=== PATIENT | male | born 1995 | race Caucasian/White ===

== ENCOUNTER 2017-02-01 10:05 | Emergency (ER) | payer OTHER ==
[~2017-02-01] VITALS: Ht 182.9 cm; Wt 75.0 kg
[2017-02-01 10:06] VITALS: BP 137/72
== END 2017-02-01 10:48 | disposition home or self-care (01) ==
LOC: M ED 10:05
DX: Z01.30 Encounter for examination of blood pressure without abnormal findings (principal)

== ENCOUNTER → 2017-02-09 | Outpatient (CLI) | payer OTHER ==
[~2017-02-09] MED LIST: ISOVUE-370 76% 100ML VIAL (Q9967) As Ordered ONE
--- NOTE | 2017-02-10 08:23 | REP ---
CT of the chest with IV contrast: There are no comparisons. There are no infiltrates or effusions. There are no masses or nodules. There is no mediastinal or hilar lymph node enlargement. There is no axillary lymph node enlargement. The thoracic aorta is unremarkable. Cardiac size is normal. There is no pericardial effusion. The visualized upper abdominal contents are unremarkable. Impression: Negative CT study of the chest. There is no lymph node enlargement. Signed by Ernesto Norht MD 02/10/2017 08:14 A
== END ==
LOC: M RAD 17:33
PROVIDERS: ATTEND Physician Assistant
DX: R07.9 Chest pain, unspecified (principal)

== ENCOUNTER → 2019-09-03 | Outpatient (CLI) | payer OTHER | LOC: M OUTALCOH 08:54 | PROVIDERS: ATTEND Psychiatry & Neurology Addiction Medicine | DX: Z03.89 Encounter for observation for other suspected diseases and conditions ruled out (principal) ==

== ENCOUNTER 2019-09-19 14:33 | Outpatient (RCR) | payer OTHER | END 2019-10-07 | LOC: M OUTALCOH 14:33 | PROVIDERS: ATTEND Psychiatry & Neurology Addiction Medicine | DX: F10.10 Alcohol abuse, uncomplicated (principal); F17.200 Nicotine dependence, unspecified, uncomplicated ==

== ENCOUNTER → 2019-11-05 | Outpatient (CLI) | payer OTHER | LOC: M OUTALCOH 08:49 | PROVIDERS: ATTEND Psychiatry & Neurology Addiction Medicine | DX: Z13.39 Encounter for screening examination for other mental health and behavioral disorders (principal); F10.10 Alcohol abuse, uncomplicated ==

== ENCOUNTER 2019-11-12 08:51 | Outpatient (RCR) | payer OTHER | END 2019-12-07 | LOC: M OUTALCOH 08:51 | PROVIDERS: ATTEND Psychiatry & Neurology Addiction Medicine | DX: F10.10 Alcohol abuse, uncomplicated (principal); F17.200 Nicotine dependence, unspecified, uncomplicated ==